=== PATIENT | female | born 1965 | race Caucasian/White ===

== ENCOUNTER 2019-10-08 16:58 | Emergency (ER) | payer OTHER ==
[~2019-10-08] VITALS: Ht 157.5 cm; Wt 70.8 kg
[2019-10-08 17:06] VITALS: BP 163/80
--- NOTE | 2019-10-08 17:14 | NUR ---
PT AMBULATED TO BED WITH FAMILY
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
--- NOTE | 2019-10-08 17:43 | NUR ---
X RAY AT BEDSIDE
--- NOTE | 2019-10-08 18:18 | NUR ---
Patient being evaluated by JUSTO RIVERA at bedside.
[2019-10-08 18:22] VITALS: BP 163/80
== END 2019-10-08 18:21 | disposition home or self-care (01) ==
LOC: MED 16:58
DX: S60.221A Contusion of right hand, initial encounter (principal); S80.11XA Contusion of right lower leg, initial encounter; Z98.890 Other specified postprocedural states; V89.2XXA Person injured in unspecified motor-vehicle accident, traffic, initial encounter; Y93.89 Activity, other specified; Y92.89 Other specified places as the place of occurrence of the external cause; Y99.8 Other external cause status
CPT/HCPCS: 73130; 99283

== ENCOUNTER 2023-05-06 08:25 | Emergency (ER) | payer MEDICAID, OTHER ==
[~2023-05-06] VITALS: Ht 157.5 cm; Wt 65.3 kg
[2023-05-06 08:31] VITALS: BP 130/94; PULSE 90; RESP 16; TEMP 98; O2SAT 99
[2023-05-06] MEDS ORDERED: methylPREDNISolone SS 40 MG in WATER STERILE 1 ML IM ONE (08:40)
[2023-05-06] MEDS ORDERED: KETOROLAC 30 MG/ML VIAL IM ONE (08:40)
[2023-05-06] MEDS ORDERED: IBUP-2213 PO (08:46)
[2023-05-06] MEDS ORDERED: DICL100G5 TP (08:46)
[2023-05-06] MEDS ORDERED: LID5T TP (08:46)
[2023-05-06] MEDS ORDERED: TRAM50TA3 PO (08:46)
[2023-05-06 08:47] VITALS: O2SAT 97
--- NOTE | 2023-05-06 08:52 | NUR ---
PATIENT PRESENTS TO ED WITH LEFT SIDE PAIN THAT RADIATES FROM LEFT HIP TO LEFT FOOT. PT STATES SHE IS PRE DM TYPE 2, HX OF HTN. DENIES N/V/D; SKIN IS PINK/WARM/DRY; AAOX4 WITH EVEN AND UNSTEADY GAIT; LUNGS CLEAR BL; HR EVEN AND REGULAR; PT DENIES ANY FEVER, CP, SOB, OR COUGH AT THIS TIME; PATIENT STATES PAIN OF 8/10 AT THIS TIME; VSS; PATIENT POSITIONED FOR COMFORT; HOB ELEVATED; BEDRAILS UP X2; BED DOWN. ER MD MADE AWARE OF PT STATUS.
[2023-05-06] MEDS ORDERED: WATER STERILE 10 ML MC ONE (09:12)
[2023-05-06] MEDS ORDERED: methylPREDNISolone SS 40 MG/ML VIAL ONE (09:12)
--- NOTE | 2023-05-06 09:30 | NUR ---
Lidya giles in ED - 05/06/23 at 0943 by INDERJIT PT HAS BEEN MEDICATED PER PROVIDERS ORDERS. PT WILL STAY FOR TEN MINUTES FOR REEVALUATION OF MEDICATION REACTION.
--- NOTE | 2023-05-06 09:30 | NUR ---
PT HAS BEEN MEDICATED PER PROVIDERS ORDERS. PT WILL STAY FOR TEN MINUTES FOR REEVALUATION OF MEDICATION REACTION.
--- NOTE | 2023-05-06 09:39 | NUR ---
Lidya giles in EDM - 05/06/23 at 0943 by INDERJIT Patient discharged with v/s stable. Written and verbal after care instructions given and explained. Patient verbalized understanding. Ambulatory with steady gait. All questions addressed prior to discharge. Advised to follow up with PMD.
[2023-05-06 09:45] VITALS: BP 148/73; PULSE 102; RESP 16; TEMP 98.4; O2SAT 97
--- NOTE | 2023-05-06 09:45 | NUR ---
Patient discharged with v/s stable. Written and verbal after care instructions given and explained. Patient verbalized understanding. Ambulatory with steady gait. All questions addressed prior to discharge. Advised to follow up with PMD.
[2023-05-08] MEDS ORDERED: WATER STERILE 10 ML VIAL MC ONE (09:15)
[2023-05-08] MEDS ORDERED: methylPREDNISolone SS 40 MG in WATER STERILE 1 ML IM ONE (09:15)
== END 2023-05-06 09:45 | disposition home or self-care (01) ==
LOC: MED 08:25
DX: M54.32 Sciatica, left side (principal); I10 Essential (primary) hypertension; Z79.899 Other long term (current) drug therapy
CPT/HCPCS: 99281; J1885; J2920